=== PATIENT | female | born 1950 | race Caucasian/White ===

== ENCOUNTER 2024-01-17 16:24 | Outpatient (CLI) | payer MEDICARE ==
[~2024-01-17 16:24] MED LIST: VALS160T30; VENL150C58
== END 2024-01-17 23:59 | disposition home or self-care (01) ==
LOC: VAS 16:24
PROVIDERS: ATTEND Specialist
DX: R22.41 Localized swelling, mass and lump, right lower limb (principal); R22.31 Localized swelling, mass and lump, right upper limb; I82.409 Acute embolism and thrombosis of unspecified deep veins of unspecified lower extremity
CPT/HCPCS: 93970